=== PATIENT | female | born 1960 | race Caucasian/White ===

== ENCOUNTER → 2017-11-18 | Outpatient (CLI) | payer OTHER ==
[2017-11-18 13:47] LABS: ALBUMIN 3.9 gm/dl (3.4-5.0); ALT/SGPT 20 U/L (12-78); AST/SGOT 17 U/L (15-37); BLOOD UREA NITROGEN 13 mg/dl (7-18); CALCIUM 8.8 mg/dl (8.5-10.1); CARBON DIOXIDE 30 mmol/L (21-32); CHOLESTEROL 193 mg/dl (0-200); CREATININE 0.82 mg/dl (0.60-1.20); GLUCOSE 93 mg/dl (70-99); POTASSIUM 4.1 mmol/L (3.5-5.1); SODIUM 138 mmol/L (136-145)
[2017-11-18 13:56] LABS: ALKALINE PHOSPHATASE 81 U/L (45-117); LDL CHOLESTEROL CALCULATED 123 mg/dl; TOTAL PROTEIN 7.4 gm/dl (6.4-8.2)
== END | disposition home or self-care (01) ==
LOC: C.LABSPEC 12:54
PROVIDERS: ATTEND Family Medicine
DX: Z13.228 Encounter for screening for other metabolic disorders (principal); Z13.220 Encounter for screening for lipoid disorders; R63.5 Abnormal weight gain

== ENCOUNTER → 2017-11-18 | Outpatient (CLI) | payer OTHER | END | disposition home or self-care (01) | LOC: C.PAPS 13:00 | PROVIDERS: ATTEND Family Medicine | DX: Z12.72 Encounter for screening for malignant neoplasm of vagina (principal); R87.610 Atypical squamous cells of undetermined significance on cytologic smear of cervix (ASC-US) ==

== ENCOUNTER → 2018-02-10 | Outpatient (CLI) | payer OTHER ==
--- NOTE | 2018-02-10 09:03 | DIAGNOSTIC IMAGING REPORT ---
LYMPHOSCINTIGRAPHY CLINICAL HISTORY: Right breast cancer. PROCEDURE: Using standard sterile technique, 4 intradermal and one deep injection of 0.5 mCi of Lymphoseek was placed in the right periareolar breast. The patient tolerated the procedure well. There were no immediate complications. Imaging was performed 15 minutes following the injection of radiotracer. Contrast is seen at the injection site within the right breast. There is a single focus of radiotracer uptake within the right axilla consistent with a signal left none. This is marked cutaneously for biopsy. IMPRESSION: Injection of 0.5 mCi of Lymphoseek in the right breast. A right axillary sentinel lymph node was marked cutaneously for biopsy. Electronically signed by: Franky Coronado M.D. 02/10/2018 9:02 AM Dictated Date/Time: 02/10/2018 9:00 AM
== END | disposition home or self-care (01) ==
LOC: C.NUCL 07:59
PROVIDERS: ATTEND Surgery
DX: C50.511 Malignant neoplasm of lower-outer quadrant of right female breast (principal)